=== PATIENT | female | born 1930 | race Caucasian/White ===

== ENCOUNTER 2017-03-07 09:00 | Inpatient (IN) ==
[2017-03-02 15:52] LABS: Basophils # (Auto) 0 K/mcL (0.0-0.3); Basophils % (Auto) 0.1 % (0.0-2.0); Eosinophils # (Auto) 0.3 K/mcL (0.0-0.7); Eosinophils % (Auto) 4.7 % (0.0-7.0); Granulocytes % (Auto) 58.6 % (38.0-78.0); Lymphocytes # (Auto) 1.7 K/mcL (1.5-4.8); Lymphocytes % (Auto) 29.9 % (15.5-49.0); Mean Cell Volume 88.9 fL (80.0-100.0); Mean Corpuscular HGB Conc 33.5 g/dL (31.0-36.0); Mean Corpuscular Hemoglobin 29.8 pg (26.0-34.0); Monocytes # (Auto) 0.4 K/mcL (0.1-0.9); Monocytes % (Auto) 6.7 % (1.0-12.0); Platelet Count 194 K/mcL (140-440); RBC 4.36 M/mcL (4.00-5.20); Red Cell Distribution Width 14.7 % (11.5-14.5)
[2017-03-02 16:01] LABS: Blood Urea Nitrogen 17 mg/dl (8-23)
[2017-03-02 16:25] LABS: Appearance,Urine HAZY; Bacteria,Urine MOD /hpf (0); Bilirubin,Urine NEG (NEG); Color,Urine YELLOW; Glucose,Urine (UA) NEGATIVE (NEG); Leukocyte Esterase,Urine 25 /uL (NEG); Mucus,Urine FEW /hpf (0); Nitrate,Urine NEG (NEG); Protein,Urine NEG (NEG); Specific Gravity,Urine 1.016 (1.000-1.035); Urine Blood NEG mg/dL (<0.03); Urine Hyaline Cast 1 /lpf (0-2); Urine RBC 1 /hpf (0-1); Urine Squamous Epithelial Cell 5 /hpf (0-4); Urine Transitional Epi Cells < 1 /hpf (0-2); Urine WBC 9 /hpf (0-4); Urobilinogen,Urine NEG (NEG)
[~2017-03-07 09:00] MED LIST: ACETAMINOPHEN 500 MG TABLET PO SCH; CELECOXIB 200 MG CAPSULE PO SCH; PREGABALIN 75 MG CAPSULE PO SCH; ceFAZolin 1 GM VIAL IV SCH; oxyCODONE 10 MG TAB.ER.12H PO SCH
[2017-03-07 10:31] LABS: Appearance,Urine CLEAR; Bilirubin,Urine NEG (NEG); Color,Urine YELLOW; Glucose,Urine (UA) NEGATIVE (NEG); Leukocyte Esterase,Urine NEG /uL (NEG); Nitrate,Urine NEG (NEG); Protein,Urine NEG (NEG); Specific Gravity,Urine 1.017 (1.000-1.035); Urine Blood NEG mg/dL (<0.03); Urobilinogen,Urine NEG (NEG)
[2017-03-07] MEDS ORDERED: PROPOFOL 200 MG/20 ML VIAL IV ONE (10:55)
[2017-03-07] MEDS ORDERED: LIDOCAINE HCL/PF 100 MG/5 ML SYRINGE IV ONE (10:55)
[2017-03-07] MEDS ORDERED: MIDAZOLAM 5 MG/5 ML VIAL IV ONE (10:55)
[2017-03-07] MEDS ORDERED: DEXAMETHASONE 10 MG/ML VIAL IV ONE (10:55)
[2017-03-07] MEDS ORDERED: GLYCOPYRROLATE 0.2 MG/ML VIAL IV ONE (10:55)
[2017-03-07] MEDS ORDERED: ONDANSETRON 4 MG/2 ML VIAL IV ONE (10:55)
[2017-03-07] MEDS ORDERED: KETAMINE 100 MG/ML ML IV ONE (10:55)
[2017-03-07] MEDS ORDERED: ePHEDrine 50 MG/ML AMPUL IV ONE (10:55)
[2017-03-07] MEDS ORDERED: GENTAMICIN SULFATE 800 MG/20 ML VIAL IR ONE (12:18)
[2017-03-07] MEDS ORDERED: BISACODYL 10 MG SUPP.RECT PR PRN (12:36)
[2017-03-07] MEDS ORDERED: MAGNESIUM HYDROXIDE 30 ML ORAL.SUSP PO PRN (12:36)
[2017-03-07] MEDS ORDERED: BENZOCAINE/MENTHOL 1 LOZENGE PO PRN (12:36)
[2017-03-07] MEDS ORDERED: KETOROLAC 15 MG/ML VIAL IV PRN (12:36)
[2017-03-07] MEDS ORDERED: TRANEXAMIC ACID 1,000 MG/10 ML VIAL IV ONE (12:36)
[2017-03-07] MEDS ORDERED: POLYETHYLENE GLYCOL 3350 17 GM PACKET PO PRN ×2 (12:36→21:00)
[2017-03-07] MEDS ORDERED: HYDROmorphone 2 MG/ML SYRINGE IV PRN (12:36)
[2017-03-07] MEDS ORDERED: TEMAZEPAM 15 MG CAPSULE PO PRN (12:36)
[2017-03-07] MEDS ORDERED: ACETAMINOPHEN 325 MG TABLET PO PRN ×2 (12:36→12:38)
[2017-03-07] MEDS ORDERED: ONDANSETRON 4 MG/2 ML VIAL IV PRN ×2 (12:36→14:49)
[2017-03-07] MEDS ORDERED: FLEETS ADULT ENEMA PR PRN (12:36)
--- NOTE | 2017-03-07 13:13 | XRay Report ---
CLINICAL INFORMATION: Postsurgical follow-up. Left total hip arthroplasty COMPARISON: None. FINDINGS: Patient has undergone bilateral total hip arthroplasty. Left acetabular and femoral head complements are in anatomic positions. There is postsurgical soft tissue gas. IMPRESSION: Status post left total hip arthroplasty. Interpreted and Authenticated by: Stephen Larkin 03/07/17
[2017-03-07] MEDS: 0.45 % SODIUM CHLORIDE 1,000 ML IV SCH (14:45)
[2017-03-07] MEDS: 0.9 % SODIUM CHLORIDE 10 ML SYRINGE IV SCH ×2 (14:46→22:02)
[2017-03-07] MEDS ORDERED: IPRATROPIUM/ALBUTEROL 3 ML AMPUL.NEB NEB PRN (14:49)
[2017-03-07] MEDS ORDERED: PROMETHAZINE 25 MG/ML VIAL IM PRN (14:49)
[2017-03-07] MEDS ORDERED: METHOCARBAMOL 1,000 MG/10 ML VIAL IV PRN (14:49)
[2017-03-07] MEDS ORDERED: LACTATED RINGERS 1,000 ML IV SCH (15:00)
--- NOTE | 2017-03-07 16:36 | Brief Operative Note ---
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
[2017-03-07] MEDS: ceFAZolin 1 GM VIAL IV SCH (19:15)
[2017-03-07] MEDS: SENNOSIDES 1 TABLET PO SCH (22:00)
[2017-03-07] MEDS: DOCUSATE SODIUM 100 MG CAPSULE PO SCH (22:00)
[2017-03-07] MEDS: ASPIRIN 325 MG ENTERIC COATED TABLET PO SCH (22:00)
[2017-03-07] MEDS: FERROUS GLUCONATE 324 MG TABLET PO SCH (22:01)
[2017-03-07] MEDS: HYDROCODONE/APAP 7.5/325MG TABLET PO PRN (22:01)
[2017-03-08] MEDS: 0.45 % SODIUM CHLORIDE 1,000 ML IV SCH ×3 (00:49→18:54)
[2017-03-08] MEDS: ceFAZolin 1 GM VIAL IV SCH (02:53)
[2017-03-08] MEDS: 0.9 % SODIUM CHLORIDE 10 ML SYRINGE IV SCH ×3 (05:06→21:16)
--- NOTE | 2017-03-08 08:09 | Orthopedic Progress Note ---
Subjective Patient information: Note initiated : 03/08/17 at 8:09 am Service Date, if different from initiated Date: [] Patient: Xenia Douglas 86 y/o F admitted on 03/07/17 for Left Total Hip Arthroplasty. Chief Complaint: [less pain alert and talking Objective Vital signs: Vital Signs Temp Pulse Resp BP BP Pulse Ox 03/08/17 07:28 95 03/08/17 07:09 97.6 F 16 104/60 93 03/08/17 05:10 99 03/08/17 02:58 97.4 F 59 L 16 107/61 99 03/08/17 02:00 99 03/07/17 23:30 97.5 F 56 L 16 101/57 98 03/07/17 22:00 98 03/07/17 20:14 97 03/07/17 19:43 97.3 F 60 16 127/59 98 03/07/17 18:00 95 03/07/17 15:00 18 126/66 98 03/07/17 14:36 99 03/07/17 14:35 98.2 F 16 120/65 98 03/07/17 14:10 16 117/61 99 03/07/17 13:50 98.1 F 16 121/58 98 03/07/17 13:35 16 110/61 97 03/07/17 13:20 97.8 F 16 129/67 97 03/07/17 13:07 97.0 F 65 10 L 117/56 100 03/07/17 13:02 97.0 F 65 10 L 124/58 100 03/07/17 12:57 97.9 F 76 13 122/58 100 03/07/17 12:52 97.9 F 76 13 121/61 100 03/07/17 12:47 97.9 F 76 13 128/69 100 03/07/17 12:42 97.9 F 76 13 119/59 100 03/07/17 12:37 97.9 F 76 13 116/59 100 03/07/17 09:53 96.8 F L 16 167/77 96 Intake and Output 03/07/17 03/08/17 03/08/17 21:59 05:59 13:59 Intake Total 360 / 360 1100 / 1100 Output Total Balance 359 / 359 1099 / 1099 Intake: IV 1000 / 1000 Sodium Chloride 0.45% 1, 1000 / 1000 000 ml @ 100 mls/hr IV . Q10H MICHAEL Rx#:[id number] Oral 360 / 360 100 / 100 Output: # of times incontinent of urine Other: Meal Dinner Percent of Meal Consumed 100% Feeding Ability Independent # Voids 1 Weight 89 lb 8 oz Intake & Output: Intake & Output 03/07/17 03/08/17 03/08/17 21:59 05:59 13:59 Intake Total 360 / 360 1100 / 1100 Output Total Balance 359 / 359 1099 / 1099 Weight 89 lb 8 oz Intake: IV 1000 / 1000 Sodium Chloride 0.45% 1, 1000 / 1000 000 ml @ 100 mls/hr IV . Q10H MICHAEL Rx#:[id number] Oral 360 / 360 100 / 100 Output: # of times incontinent of urine Other: Meal Dinner Percent of Meal Consumed 100% Feeding Ability Independent # Voids 1 Incision: Yes healing Incision clean and dry: Yes Dressing: Yes clean Weight bearing status: full Neurological exam IM: Yes oriented X3, Yes neurovascular intact Extremities exam IM: Yes Foot pink and warm, Yes neurovascular intact - Labs CBC & BMP: 03/08/17 04:15 03/02/17 14:10 Labs: Orthopedic Labs 03/02/17 14:10 PT 13.9 INR 1.0 APTT 32 03/08/17 03/02/17 04:15 14:11 Hgb 13.0 Hct 30.3 L 38.8
[2017-03-08] MEDS: FERROUS GLUCONATE 324 MG TABLET PO SCH ×2 (08:42→21:11)
[2017-03-08] MEDS: DOCUSATE SODIUM 100 MG CAPSULE PO SCH ×2 (08:42→21:12)
[2017-03-08] MEDS: ASPIRIN 325 MG ENTERIC COATED TABLET PO SCH ×2 (08:42→21:12)
[2017-03-08] MEDS: HYDROCODONE/APAP 7.5/325MG TABLET PO PRN ×2 (13:23→21:49)
[2017-03-08] MEDS: SENNOSIDES 1 TABLET PO SCH (21:12)
[2017-03-09] MEDS: 0.9 % SODIUM CHLORIDE 10 ML SYRINGE IV SCH ×3 (04:52→20:37)
--- NOTE | 2017-03-09 07:14 | Discharge Summary ---
Ortho Discharge - [facility] - Patient Instructions Diet: Regular Diet Activity: activity as tolerated, weight bearing as tolerated Total Hip Protocol: Follow activity instructions as provided by Physical Therapy. Dressing Care: Salud Cisse - leave on for 5 days - Follow Up Plan Follow Up Appointments: Clint Jovel MD [Physician] - 03/22/17 1:40 pm Disposition: Xfer SNF Prognosis: Good Rehab Potential: Good I certify that the patient requires SNF services: Yes Overall status at discharge: patient is progressing back to baseline - Orders For Discharge Prescriptions: Hydrocodone/APAP 7.5/325Mg [[place] 7.5/325Mg] 7.5 mg PO Q4HP PRN #60 tablet PRN Reason: Pain
--- NOTE | 2017-03-09 07:16 | Orthopedic Progress Note ---
Subjective Patient information: Note initiated : 03/09/17 at 7:15 am Service Date, if different from initiated Date: [] Patient: Xenia Douglas 86 y/o F admitted on 03/07/17 for Left Total Hip Arthroplasty. Chief Complaint: [minimal pain no sob and no cp] Objective Vital signs: Vital Signs Temp Pulse Resp BP Pulse Ox 03/09/17 04:00 97.5 F 64 12 128/66 94 03/08/17 23:04 97.6 F 63 12 123/63 94 03/08/17 20:00 97.6 F 52 L 12 120/68 96 03/08/17 19:52 93 03/08/17 17:04 97.7 F 61 16 105/59 93 03/08/17 11:43 97.9 F 60 16 105/60 93 03/08/17 07:28 95 Intake and Output 03/08/17 03/09/17 03/09/17 21:59 05:59 13:59 Intake Total 150 / 150 50 / 50 Output Total Balance 149 / 149 50 / 50 Intake: Oral 150 / 150 50 / 50 Output: # of times incontinent of 1 / 1 urine Other: # Voids 1 1 # Bowel Movements 1 # of times incontinent of 1 Bowels Weight 92 lb Intake & Output: Intake & Output 03/08/17 03/09/17 03/09/17 21:59 05:59 13:59 Intake Total 150 / 150 50 / 50 Output Total 1 / Balance 149 / 149 50 / 50 Weight 92 lb Intake: Oral 150 / 150 50 / 50 Output: # of times incontinent of 1 / 1 urine Other: # Voids 1 1 # Bowel Movements 1 # of times incontinent of 1 Bowels Incision: Yes healing Incision clean and dry: Yes Dressing: Yes clean Weight bearing status: full Neurological exam IM: Yes alert, Yes neurovascular intact Extremities exam IM: Yes Foot pink and warm, Yes neurovascular intact - Labs CBC & BMP: 03/08/17 04:15 03/02/17 14:10 Labs: Orthopedic Labs 03/02/17 14:10 PT 13.9 INR 1.0 APTT 32 03/08/17 03/02/17 04:15 14:11 Hgb 13.0 Hct 30.3 L 38.8
--- NOTE | 2017-03-09 07:20 | Discharge Summary ---
Ortho Discharge - [facility] - Patient Instructions Diet: Regular Diet Activity: activity as tolerated, weight bearing as tolerated Total Hip Protocol: Follow activity instructions as provided by Physical Therapy. - Follow Up Plan Follow Up Appointments: Clint Jovel MD [Physician] - 03/22/17 1:40 pm Disposition: Xfer SNF Prognosis: Good Rehab Potential: Good I certify that the patient requires SNF services: Yes - Orders For Discharge Prescriptions: Hydrocodone/APAP 7.5/325Mg [[place] 7.5/325Mg] 7.5 mg PO Q4HP PRN #60 tablet PRN Reason: Pain Additional Discharge Orders: OT Discharge Order Location: Determined By Patient Physical Therapy at Discharge - [facility] Location: Determined By Patient Walker Location: Determined By Patient
[2017-03-09] MEDS: DOCUSATE SODIUM 100 MG CAPSULE PO SCH ×2 (09:02→19:55)
[2017-03-09] MEDS: ASPIRIN 325 MG ENTERIC COATED TABLET PO SCH ×2 (09:02→19:55)
[2017-03-09] MEDS: FERROUS GLUCONATE 324 MG TABLET PO SCH ×2 (09:02→20:00)
[2017-03-09] MEDS: HYDROCODONE/APAP 7.5/325MG TABLET PO PRN (16:17)
[2017-03-09] MEDS: SENNOSIDES 1 TABLET PO SCH (20:37)
[2017-03-10] MEDS: 0.9 % SODIUM CHLORIDE 10 ML SYRINGE IV SCH (06:00)
[2017-03-10] MEDS: DOCUSATE SODIUM 100 MG CAPSULE PO SCH (08:28)
[2017-03-10] MEDS: FERROUS GLUCONATE 324 MG TABLET PO SCH (08:28)
[2017-03-10] MEDS: ASPIRIN 325 MG ENTERIC COATED TABLET PO SCH (08:28)
--- NOTE | 2017-03-10 09:05 | Orthopedic Progress Note ---
Subjective Patient information: Note initiated : 03/10/17 at 9:03 am Service Date, if different from initiated Date: [] Patient: Xenia Douglas 86 y/o F admitted on 03/07/17 for Left Total Hip Arthroplasty. Chief Complaint: [doing well with some age related confusion and is starting to walk with minimal pain] Objective Vital signs: Vital Signs Temp Pulse Resp BP Pulse Ox 03/10/17 07:34 95.1 F L 16 131/69 95 03/10/17 04:00 98.0 F 69 16 106/51 92 03/09/17 23:57 97.6 F 64 16 128/59 94 03/09/17 20:00 97.9 F 62 16 133/62 94 03/09/17 16:00 97.7 F 64 12 125/62 95 03/09/17 12:00 97.4 F 12 125/67 95 Intake and Output 03/09/17 03/10/17 03/10/17 21:59 05:59 13:59 Intake Total 440 / 440 50 / 50 Output Total Balance 439 / 439 50 / 50 Intake: Oral 440 / 440 50 / 50 Output: # of times incontinent of 1 / 1 urine Other: Meal Lunch Percent of Meal Consumed 50% Feeding Ability Assist with Tray Set Up # Voids 1 1 # Bowel Movements 1 # of times incontinent of 1 Bowels Weight 91 lb 8 oz Intake & Output: Intake & Output 03/09/17 03/10/17 03/10/17 21:59 05:59 13:59 Intake Total 440 / 440 50 / 50 Output Total Balance 439 / 439 50 / 50 Weight 91 lb 8 oz Intake: Oral 440 / 440 50 / 50 Output: # of times incontinent of 1 / 1 urine Other: Meal Lunch Percent of Meal Consumed 50% Feeding Ability Assist with Tray Set Up # Voids 1 1 # Bowel Movements 1 # of times incontinent of 1 Bowels Incision: Yes healing Incision clean and dry: Yes Dressing: Yes clean Weight bearing status: full Neurological exam IM: Yes neurovascular intact Extremities exam IM: Yes Foot pink and warm (dc snh), Yes neurovascular intact - Labs CBC & BMP: 03/08/17 04:15 03/02/17 14:10 Labs: Orthopedic Labs 03/02/17 14:10 PT 13.9 INR 1.0 APTT 32 07/11/17 07/05/17 04:15 14:11 Hgb 13.0 Hct 30.3 L 38.8
== END 2017-03-10 11:10 | DRG 467 ==
LOC: MEDSUR 09:00
PROVIDERS: ADMIT Orthopaedic Surgery; ATTEND Orthopaedic Surgery